=== PATIENT | female | born 1955 | race Caucasian/White ===

== ENCOUNTER 2021-07-28 02:01 | Observation (INO) | payer BC ==
[2021-07-28 03:26] LABS: Basophils % (A) 0 %; Eosinophils # (A) 0.1 k/uL (0-0.7); Eosinophils % (A) 1 %; HCT 44.6 % (34.0-46.0); Lymphocytes # (A) 1.4 k/uL (1.0-4.8); Lymphocytes % (A) 13 %; MCH 31.5 pg (25.0-35.0); MCHC 33.6 g/dL (31.0-37.0); MCV 93.7 fL (80.0-100.0); Mean Platelet Volume 8.6; Monocytes # (A) 0.5 k/uL (0-1.0); Monocytes % (A) 5 %; Neutrophils # (A) 8.6 k/uL (1.3-7.7); Neutrophils % (A) 80 %; Platelet Count 268 k/uL (150-450); RBC 4.76 m/uL (3.80-5.40); RDW 13.4 % (11.5-15.5); WBC 10.8 k/uL (3.8-10.6)
--- NOTE | 2021-07-28 03:27 | XR ---
EXAMINATION TYPE: XR chest 1V portable DATE OF EXAM: 07/28/2021 COMPARISON: NONE HISTORY: Dysrhythmia TECHNIQUE: Single view FINDINGS: Heart and mediastinum are normal. Lungs are clear. Diaphragm is normal. There are chest michelet ds. Bony thorax is intact. IMPRESSION: Normal chest.
[2021-07-28 03:33] LABS: INR 0.9 (<1.2); Prothrombin Time 9.9 sec (9.0-12.0)
[2021-07-28 03:35] LABS: ALT 19 U/L (4-34); AST 23 U/L (14-36); African American GFR (CKD) >90 (>60 ml/min/1.73 sqM); Albumin 4.4 g/dL (3.5-5.0); Alkaline Phosphatase 219 U/L (38-126); Anion Gap 8 mmol/L; Blood Urea Nitrogen 19 mg/dL (7-17); Calcium 9.8 mg/dL (8.4-10.2); Carbon Dioxide 26 mmol/L (22-30); Chloride 105 mmol/L (98-107); Glucose 128 mg/dL (74-99); Magnesium 2.2 mg/dL (1.6-2.3); Non-African American GFR(CKD) >90 (>60 ml/min/1.73 sqM); Partial Thromboplastin Time 21.1 sec (22.0-30.0); Potassium 4.1 mmol/L (3.5-5.1); Sodium 139 mmol/L (137-145); Total Bilirubin 0.3 mg/dL (0.2-1.3); Total Protein 6.9 g/dL (6.3-8.2)
[2021-07-28] MEDS ORDERED: SODIUM CHLORIDE 0.9% 500 ML 500 ML IV STA (03:36)
[2021-07-28] MEDS ORDERED: ENOXAPARIN 80 MG/0.8 ML SYRINGE SQ STA (03:40)
[2021-07-28] MEDS ORDERED: NITROGLYCERIN SL TABS 0.4 MG TAB SUBLINGUAL PRN (03:52)
--- NOTE | 2021-07-28 03:59 | ED ---
Arrhythmia/Palpitations HPI - General Chief Complaint: Arrhythmia/Palpitations Stated Complaint: A-Fib Time Seen by Provider: 07/28/21 02:27 Source: patient, family Mode of arrival: ambulatory Limitations: no limitations - History of Present Illness Initial Comments: 's patient is a 65-year-old woman who presents to be evaluated for rapid and irregular heartbeat. Patient states she has history of intermittent atrial fibrillation going back for years she has not had any episodes. The patient states she sees Dr. Yanez, who has instructed her to take a Flecainide milligrams tablets if she gets symptoms and it does not resolve then she takes Cardizem tablet after half an hour. She states she is not maintained on blood thinner. Patient denies associated symptoms, no chest pain, diaphoresis ,dyspnea, nausea or vomiting, lightheadedness or syncope. MD Complaint: rapid heart beat, irregular heart beat -: hour(s) Context: occurred during rest Arrhythmia History: atrial fibrillation Associated Symptoms: denies other symptoms Treatments Prior to Arrival: calcium channel maren, other (Flecainide) - Related Data Allergies Allergy/AdvReac Type Severity Reaction Status Date / Time No Known Allergies Allergy Verified 07/28/21 02:12 Review of Systems ROS Statement: Those systems with pertinent positive or pertinent negative responses have been documented in the HPI. ROS Other: All systems not noted in ROS Statement are negative. Constitutional: Denies: fever, weakness Eyes: Denies: vision change Respiratory: Denies: cough, dyspnea Cardiovascular: Reports: palpitations. Denies: chest pain, orthopnea, edema, syncope Gastrointestinal: Denies: abdominal pain, nausea, vomiting, diarrhea Genitourinary: Denies: dysuria, hematuria Musculoskeletal: Denies: back pain Skin: Denies: rash Neurological: Denies: headache, weakness, numbness Past Medical History Past Medical History: Atrial Fibrillation History of Any Multi-Drug Resistant Organisms: None Reported Past Surgical History: No Surgical Hx Reported Past Psychological History: No Psychological Hx Reported Smoking Status: Never smoker Past Alcohol Use History: None Reported Past Drug Use History: None Reported General Exam Limitations: no limitations General appearance: alert, in no apparent distress Head exam: Present: atraumatic, normocephalic Eye exam: Present: normal appearance. Absent: scleral icterus, conjunctival injection Neck exam: Present: normal inspection Respiratory exam: Present: normal lung sounds bilaterally. Absent: respiratory distress, wheezes, rales, rhonchi, stridor, accessory muscle use Cardiovascular Exam: Present: tachycardia, irregular rhythm, normal heart sounds. Absent: systolic murmur, diastolic murmur, rubs, gallop GI/Abdominal exam: Present: soft. Absent: distended, tenderness, guarding, rebound, rigid, mass Extremities exam: Present: normal inspection, normal capillary refill. Absent: pedal edema, calf tenderness Back exam: Present: normal inspection. Absent: CVA tenderness (R), CVA tenderness (L) Neurological exam: Present: alert Skin exam: Present: warm, dry, intact, normal color. Absent: rash Course Vital Signs 07/28/21 02:07 Temperature 97.8 F Pulse Rate 108 H Respiratory 22 Rate Blood Pressure 161/96 O2 Sat by Pulse 98 Oximetry Medical Decision Making - Lab Data Result diagrams: 07/28/21 02:51 07/28/21 02:51 Lab Results 07/28/21 07/28/21 07/28/21 Range/Units 02:51 02:51 02:51 WBC 10.8 H (3.8-10.6) k/uL RBC 4.76 (3.80-5.40) m/uL Hgb 15.0 (11.4-16.0) gm/dL Hct 44.6 (34.0-46.0) % MCV 93.7 (80.0-100.0) fL MCH 31.5 (25.0-35.0) pg MCHC 33.6 (31.0-37.0) g/dL RDW 13.4 (11.5-15.5) % Plt Count 268 (150-450) k/uL MPV 8.6 Neutrophils % 80 % Lymphocytes % 13 % Monocytes % 5 % Eosinophils % 1 % Basophils % 0 % Neutrophils # 8.6 H (1.3-7.7) k/uL Lymphocytes # 1.4 (1.0-4.8) k/uL Monocytes # 0.5 (0-1.0) k/uL Eosinophils # 0.1 (0-0.7) k/uL Basophils # 0.0 (0-0.2) k/uL PT 9.9 (9.0-12.0) sec INR 0.9 (<1.2) APTT 21.1 L (22.0-30.0) sec Sodium 139 (137-145) mmol/L Potassium 4.1 (3.5-5.1) mmol/L Chloride 105 (98-107) mmol/L Carbon Dioxide 26 (22-30) mmol/L Anion Gap 8 mmol/L BUN 19 H (7-17) mg/dL Creatinine 0.68 (0.52-1.04) mg/dL Est GFR (CKD-EPI)AfAm >90 (>60 ml/min/1.73 sqM) Est GFR (CKD-EPI)NonAf >90 (>60 ml/min/1.73 sqM) Glucose 128 H (74-99) mg/dL Calcium 9.8 (8.4-10.2) mg/dL Magnesium 2.2 (1.6-2.3) mg/dL Total Bilirubin 0.3 (0.2-1.3) mg/dL AST 23 (14-36) U/L ALT 19 (4-34) U/L Alkaline Phosphatase 219 H (38-126) U/L Troponin I (0.000-0.034) ng/mL Total Protein 6.9 (6.3-8.2) g/dL Albumin 4.4 (3.5-5.0) g/dL 07/28/21 Range/Units 02:51 WBC (3.8-10.6) k/uL RBC (3.80-5.40) m/uL Hgb (11.4-16.0) gm/dL Hct (34.0-46.0) % MCV (80.0-100.0) fL MCH (25.0-35.0) pg MCHC (31.0-37.0) g/dL RDW (11.5-15.5) % Plt Count (150-450) k/uL MPV Neutrophils % % Lymphocytes % % Monocytes % % Eosinophils % % Basophils % % Neutrophils # (1.3-7.7) k/uL Lymphocytes # (1.0-4.8) k/uL Monocytes # (0-1.0) k/uL Eosinophils # (0-0.7) k/uL Basophils # (0-0.2) k/uL PT (9.0-12.0) sec INR (<1.2) APTT (22.0-30.0) sec Sodium (137-145) mmol/L Potassium (3.5-5.1) mmol/L Chloride (98-107) mmol/L Carbon Dioxide (22-30) mmol/L Anion Gap mmol/L BUN (7-17) mg/dL Creatinine (0.52-1.04) mg/dL Est GFR (CKD-EPI)AfAm (>60 ml/min/1.73 sqM) Est GFR (CKD-EPI)NonAf (>60 ml/min/1.73 sqM) Glucose (74-99) mg/dL Calcium (8.4-10.2) mg/dL Magnesium (1.6-2.3) mg/dL Total Bilirubin (0.2-1.3) mg/dL AST (14-36) U/L ALT (4-34) U/L Alkaline Phosphatase (38-126) U/L Troponin I <0.012 (0.000-0.034) ng/mL Total Protein (6.3-8.2) g/dL Albumin (3.5-5.0) g/dL Disposition Clinical Impression: Chronic atrial fibrillation with rapid ventricular response Disposition: ADMITTED IP TO THIS HOSP Condition: Good Is patient prescribed a controlled substance at d/c from ED?: No Referrals: Jimmy Ochoa DO [Primary Care Provider] - 1-2 days
[2021-07-28] MEDS ORDERED: SODIUM CHLORIDE 0.9% 1,000 ML IV SCH (04:00)
[2021-07-28 05:35] VITALS: RESP 16
[2021-07-28 07:48] VITALS: BP 151/84; PULSE 122; TEMP 98
[2021-07-28] MEDS ORDERED: DILTIAZEM ORAL 60 MG TAB PO SCH (09:00)
[2021-07-28] MEDS ORDERED: DILTIAZEM CD 120 MG CAP.ER.24H PO SCH (09:45)
--- NOTE | 2021-07-28 10:46 | P.CRDCN ---
History of Present Illness History of present illness: HISTORY OF PRESENTING ILLNESS This is a pleasant 65-year-old female past medical history significant for dyslipidemia and paroxysmal atrial fibrillation. She follows in the office with Dr. Hughes. We have been asked to see in consultation for atrial fibrillation. She presented to the hospital with symptoms of palpitations. She has had atrial fibrillation 3 times in the previous 10 years. She has been instructed to carry diltiazem and flecainide along with her and take tablets when she feels palpitations. She did take a flight tonight at home with no relief. On arrival to the emergency department the ER physician instructed her to take a second flecainide. She did not take diltiazem. Initially this morning upon evaluation she was still in A. fib with heart rates around 100. On reevaluation she has converted back to sinus rhythm. Chest x-ray is negative for any acute cardiopulmonary process. Laboratory data reviewed, WBC 10.8, hemoglobin 15, platelets 268, sodium 139, potassium 4.1, creatinine 0.68, magnesium 2.2 and cardiac enzymes negative 2. According to the patient she had a full workup over the summer to include echo, stress test and her monitor. Exact details unavailable. REVIEW OF SYSTEMS At the time of my exam: CONSTITUTIONAL: Denies fever or chills. CARDIOVASCULAR: Denies chest pain, shortness of breath, orthopnea, PND or palpitations. RESPIRATORY: Denies cough. GASTROINTESTINAL: Denies abdominal pain, diarrhea, constipation, nausea or vomiting. MUSCULOSKELETAL: Denies myalgias. NEUROLOGIC: Denies numbness, tingling, headache or weakness. ENDOCRINE: Denies fatigue, weight change, polydipsia or polyurina. GENITOURINARY: Denies burning, hematuria or urgency with micturation. HEMATOLOGIC: Denies history of anemia or bleeding. PHYSICAL EXAMINATION Blood pressure 151/84 heart rate 80s afebrile and maintaining oxygen saturation on room air. CONSTITUTIONAL: No apparent distress. HEENT: Head is normocephalic. Pupils are equal, round. Sclerae anicteric. Mucous membranes of the mouth are moist. No JVD. No carotid bruit. CHEST EXAMINATION: Lungs are clear to auscultation. No chest wall tenderness is noted on palpation or with deep breathing. HEART EXAMINATION: Regular rate and rhythm. S1, S2 heard. No murmurs, gallops or rub. ABDOMEN: Soft, nontender. EXTREMITIES: 2+ peripheral pulses, no lower extremity edema and no calf tenderness. NEUROLOGIC EXAMINATION: Patient is awake, alert and oriented x3. ASSESSMENT Paroxysmal atrial fibrillation, successfully converted to sinus rhythm. Dyslipidemia Hypertension PLAN She has successfully converted to sinus rhythm. Blood pressures have been elevated recommend taking diltiazem CD 120 mg daily regularly. Continue with flecainide when necessary for palpitations. Chads-vasc score is 2 with hypertension, therefore we have recommended long-term anticoagulation as a consideration. She will discuss this with her primary linseed oil order filler. Recommend sleep study as an outpatient. Stable for discharge from a cardiac perspective. Thank you kindly for this consultation. Nurse Practitioner note has been reviewed, I agree with a documented findings and plan of care. Patient was seen and examined. Past Medical History Past Medical History: Atrial Fibrillation, Hyperlipidemia History of Any Multi-Drug Resistant Organisms: None Reported Past Surgical History: No Surgical Hx Reported Past Anesthesia/Blood Transfusion Reactions: No Reported Reaction Past Psychological History: No Psychological Hx Reported Smoking Status: Never smoker Past Alcohol Use History: None Reported Past Drug Use History: None Reported Medications and Allergies Home Medications Medication Instructions Recorded Confirmed Type Aspirin EC [Ecotrin Low Dose] 81 mg PO DAILY 07/28/21 07/28/21 History Atorvastatin [Lipitor] 20 mg PO HS 07/28/21 07/28/21 History Diltiazem Cd [Cardizem CD] 120 mg PO DAILY #90 capsule 07/28/21 Rx Allergies Allergy/AdvReac Type Severity Reaction Status Date / Time No Known Allergies Allergy Verified 07/28/21 08:43 Physical Exam Vitals: Vital Signs Temp Pulse Pulse Resp BP BP Pulse Ox 07/28/21 07:00 98.0 F 122 H 16 151/84 98 07/28/21 05:34 98.1 F 92 16 140/81 97 07/28/21 05:04 91 22 96 07/28/21 04:05 101 H 22 109/74 98 07/28/21 02:07 97.8 F 108 H 22 161/96 98 Intake and Output 07/27/21 07/28/21 07/28/21 22:59 06:59 14:59 Other: Weight 77.111 kg Results 07/28/21 02:51 07/28/21 02:51 Cardiac Enzymes 07/28/21 07/28/21 07/28/21 Range/Units 02:51 02:51 06:41 AST 23 (14-36) U/L Troponin I <0.012 <0.012 (0.000-0.034) ng/mL Coagulation 07/28/21 Range/Units 02:51 PT 9.9 (9.0-12.0) sec APTT 21.1 L (22.0-30.0) sec CBC 07/28/21 Range/Units 02:51 WBC 10.8 H (3.8-10.6) k/uL RBC 4.76 (3.80-5.40) m/uL Hgb 15.0 (11.4-16.0) gm/dL Hct 44.6 (34.0-46.0) % Plt Count 268 (150-450) k/uL Comprehensive Metabolic Panel 07/28/21 Range/Units 02:51 Sodium 139 (137-145) mmol/L Potassium 4.1 (3.5-5.1) mmol/L Chloride 105 (98-107) mmol/L Carbon Dioxide 26 (22-30) mmol/L BUN 19 H (7-17) mg/dL Creatinine 0.68 (0.52-1.04) mg/dL Glucose 128 H (74-99) mg/dL Calcium 9.8 (8.4-10.2) mg/dL AST 23 (14-36) U/L ALT 19 (4-34) U/L Alkaline Phosphatase 219 H (38-126) U/L Total Protein 6.9 (6.3-8.2) g/dL Albumin 4.4 (3.5-5.0) g/dL Current Medications Generic Name Dose Route Start Last Admin Trade Name Freq PRN Reason Stop Dose Admin Sodium Chloride 1,000 mls @ 20 mls/hr 07/28/21 04:00 07/28/21 05:03 Saline 0.9% IV 20 mls/hr .Q24H BEBETO Administration Nitroglycerin 0.4 mg 07/28/21 03:52 Nitroglycerin Sl Tabs 0.4 Mg Tab SUBLINGUAL Q5M PRN Chest Pain Intake and Output 07/27/21 07/28/21 07/28/21 22:59 06:59 14:59 Other: Weight 77.111 kg 07/28/21 02:51 07/28/21 02:51
--- NOTE | 2021-07-28 17:30 | HP ---
HISTORY AND PHYSICAL This is a combined history and physical and discharge summary. CHIEF COMPLAINT: Palpitations. HISTORY OF PRESENT ILLNESS: This 65-year-old woman with a past medical history of multiple medical problems, including recurrent atrial fibrillation, history of paroxysmal atrial fibrillation, history of hyperlipidemia, being followed by Dr. Ochoa in the outpatient setting, was complaining of palpitations yesterday. The patient had flecainide and diltiazem. The patient had atrial fibrillation with fast ventricular rate on admission. The patient came early this morning and the patient was admitted for further evaluation and treatment. The rhythm converted to normal sinus rhythm. There is no history of any fever, rigors or chills. No history of headache, loss of consciousness, seizures at this time. PAST MEDICAL HISTORY: History of recurrent atrial fibrillation, history of hyperlipidemia. MEDICATIONS: Medications prior to admission include diltiazem p.r.n., aspirin. ALLERGIES: NONE. FAMILY HISTORY: No history of heart disease or strokes in the family. SOCIAL HISTORY: No history of smoking. No history of alcohol intake. REVIEW OF SYSTEMS: ENT: No diminished hearing. No diminished vision. CARDIOVASCULAR SYSTEM: As mentioned earlier. RESPIRATORY SYSTEM: As mentioned earlier. GI: No nausea, vomiting, diarrhea. : No dysuria. NERVOUS SYSTEM: No numbness, weakness. ALLERGY/IMMUNOLOGY: No asthma or hay fever. MUSCULOSKELETAL: As mentioned earlier. HEMATOLOGY/ONCOLOGY: No history of anemia. ENDOCRINE: No history of diabetes or hypothyroidism. CONSTITUTIONAL: As mentioned earlier. DERMATOLOGY: Negative. RHEUMATOLOGY: Negative. PSYCHIATRY: As mentioned earlier. PHYSICAL EXAMINATION: Patient alert and oriented x3. Pulse 122, blood pressure 120/84, respiration 16, temperature 98 degrees, pulse ox 98% on room air. HEENT: Conjunctivae normal. NECK: No jugular venous distention. CARDIOVASCULAR: S1, S2 muffled. RESPIRATION: Breath sounds diminished at the bases. No rhonchi. No crackles. ABDOMEN: Soft, nontender. LEGS: No edema. No swelling. NERVOUS SYSTEM: Higher functions as mentioned earlier. Moves all 4 limbs. No focal motor or sensory deficit. LYMPHATICS: No lymph node palpable in neck, axillae or groin. SKIN: No ulcer, rash, bleeding. JOINTS: No active deforming arthropathy. LABS: WBC 10.8 and sodium potassium 4.1, alkaline phosphatase 219 and other labs are normal. Troponins are normal. EKG noted. COVID-19 is negative. ASSESSMENT: 1. Atrial fibrillation, paroxysmal, with a fast ventricular rate, present on admission. 2. Increased white count, possibly reactive. 3. Hyperlipidemia history. RECOMMENDATIONS AND DISCUSSION: In this 65-year-old woman who presented with multiple medical issues, at this time I recommend to continue current medications, continue with symptomatic treatment. The patient has reverted back to normal sinus rhythm. Cardiology saw the patient and recommended outpatient followup. On exam, vitals are stable. CARDIOVASCULAR: S1, S2 muffled. ABDOMEN: Soft. NERVOUS SYSTEM: No focal deficit. DISCHARGE ADVICE AND MEDICATIONS: 1. Diet is cardiac. 2. Activity limited until followup. 3. Follow up with Dr. Ochoa in 1 to 2 days. 4. Follow up with Cardiology as recommended. 5. Ecotrin 81 mg daily. 6. Lipitor 20 mg at bedtime. 7. Cardizem CD 120 mg p.o. daily. Once again, the patient will be discharged in stable condition with guarded prognosis. MMDWAYNEL / CALEN: [id number] / LYNN
[2021-07-28] MEDS ORDERED: ATORVASTATIN 20 MG TAB PO SCH (21:00)
[2021-07-29] MEDS ORDERED: ASPIRIN 81 MG PO SCH (09:00)
[2021-07-29] MEDS ORDERED: ASPIRIN 325 MG TAB PO SCH (09:00)
== END 2021-07-28 13:18 | disposition home or self-care (01) ==
LOC: EC 02:01 → 6NMEDSUR 03:52
PROVIDERS: ADMIT Internal Medicine; ATTEND Internal Medicine
DX: I48.20 Chronic atrial fibrillation, unspecified (principal); E78.5 Hyperlipidemia, unspecified; I10 Essential (primary) hypertension; Z79.82 Long term (current) use of aspirin; Z79.899 Other long term (current) drug therapy; Z20.822 Contact with and (suspected) exposure to COVID-19
CPT/HCPCS: 96360; 96372; 99285; 36415; 93005; 80053; 83735; 84484; 85025; 85610; 85730; 87635; 71045; G0378; J1650